=== PATIENT | female | born 1995 | race Caucasian/White ===

== ENCOUNTER 2018-03-11 18:20 | Emergency (ER) | payer BC ==
[~2018-03-11] VITALS: Ht 160 cm; Wt 54.0 kg
[~2018-03-11 18:20] MED LIST: PANT-47 PO; PREN1COM10 PO; SUCR1ORA2 PO
[2018-03-11 18:33] VITALS: BP 135/81
== END 2018-03-11 19:33 | disposition home or self-care (01) ==
LOC: ER 18:21
DX: S90.02XA Contusion of left ankle, initial encounter (principal); Z88.2 Allergy status to sulfonamides; W18.30XA Fall on same level, unspecified, initial encounter; Y93.89 Activity, other specified; Y92.89 Other specified places as the place of occurrence of the external cause; Y99.8 Other external cause status
CPT/HCPCS: 29515; 73610; 99284

== ENCOUNTER 2019-02-06 11:14 | Emergency (ER) | payer BC, MEDICAID ==
[~2019-02-06] VITALS: Ht 160 cm; Wt 58.0 kg
[2019-02-06 11:18] VITALS: BP 154/95
== END 2019-02-06 12:08 | disposition home or self-care (01) ==
LOC: ER 11:15
DX: J06.9 Acute upper respiratory infection, unspecified (principal); Z88.2 Allergy status to sulfonamides; Z79.899 Other long term (current) drug therapy
CPT/HCPCS: 99281

== ENCOUNTER 2019-02-09 23:52 | Emergency (ER) | payer MEDICAID, OTHER ==
[~2019-02-09] VITALS: Ht 160 cm; Wt 68.2 kg
[2019-02-09 23:59] VITALS: BP 138/79
== END 2019-02-10 00:28 | disposition home or self-care (01) ==
LOC: ER 23:53
DX: S51.851A Open bite of right forearm, initial encounter (principal); S50.11XA Contusion of right forearm, initial encounter; Z88.2 Allergy status to sulfonamides; Z79.899 Other long term (current) drug therapy; Y04.1XXA Assault by human bite, initial encounter; Y93.89 Activity, other specified; Y92.89 Other specified places as the place of occurrence of the external cause; Y99.8 Other external cause status
CPT/HCPCS: 99281

== ENCOUNTER 2021-05-16 23:25 | Emergency (ER) | payer MEDICAID, OTHER ==
[~2021-05-16] VITALS: Ht 165.1 cm; Wt 63.6 kg
[2021-05-16] MEDS ORDERED: normal saline 1000ml 1,000 ML IV ONE (23:55)
[2021-05-16] MEDS ORDERED: ondansetron/PF 4mg/2ml inj IV ONE (23:55)
[2021-05-16] MEDS ORDERED: loperamide 2mg capsule PO ONE (23:55)
--- NOTE | 2021-05-17 00:10 | NUR ---
pt roomed. assumed care of pt
[2021-05-17] MEDS ORDERED: ketorolac trometh. 30mg/ml inj. IV ONE (00:15)
[2021-05-17] MEDS ORDERED: acetaminophen 325mg tablet PO ONE (00:15)
[2021-05-17 00:49] VITALS: BP 120/80
== END 2021-05-17 00:53 | disposition home or self-care (01) ==
LOC: ER 23:26
DX: J06.9 Acute upper respiratory infection, unspecified (principal); Z20.822 Contact with and (suspected) exposure to COVID-19; R11.0 Nausea; B34.9 Viral infection, unspecified; R05.9 Cough, unspecified; R06.02 Shortness of breath; Z88.2 Allergy status to sulfonamides; Z79.899 Other long term (current) drug therapy
CPT/HCPCS: 71045; 87635; 96374; 96375; 99284; C9803; J1885; J2405; J7030

== ENCOUNTER 2023-10-23 17:46 | Emergency (ER) | payer MEDICAID ==
[~2023-10-23] VITALS: Ht 160 cm; Wt 65.1 kg
[2023-10-23 18:05] VITALS: BP 118/83; PULSE 102; RESP 16; TEMP 98.7; O2SAT 95
[2023-10-23] MEDS ORDERED: AZIT250T83 PO (18:40)
[2023-10-23] MEDS ORDERED: ALBU8HFA INH (18:40)
[2023-10-23] MEDS ORDERED: BENZ-38 PO (18:40)
== END 2023-10-23 18:55 | disposition home or self-care (01) ==
LOC: ER 17:46
DX: R05.9 Cough, unspecified (principal); U09.9 Post COVID-19 condition, unspecified; Z79.899 Other long term (current) drug therapy; Z72.89 Other problems related to lifestyle
CPT/HCPCS: 71045; 99283

== ENCOUNTER 2024-07-16 18:18 | Emergency (ER) | payer MEDICAID ==
[~2024-07-16] VITALS: Ht 165.1 cm; Wt 58.7 kg
[2024-07-16 18:33] VITALS: BP 139/90; PULSE 94; O2SAT 98
[2024-07-16] MEDS ORDERED: ONDA-245 PO (19:07)
[2024-07-16] MEDS ORDERED: HYDR-3965 PO (19:07)
[2024-07-16 19:13] VITALS: RESP 16
[2024-07-16] MEDS: HYDROcodone/acetaminophen 5mg/325mg tablet PO ONE (19:13)
[2024-07-16] MEDS: ondansetron 4mg rapidly disintigrating tab PO ONE (19:14)
[2024-07-16 19:16] VITALS: TEMP 96.8
== END 2024-07-16 19:19 | disposition home or self-care (01) ==
LOC: ER 18:18
DX: S16.1XXA Strain of muscle, fascia and tendon at neck level, initial encounter (principal); Z79.899 Other long term (current) drug therapy; V89.2XXA Person injured in unspecified motor-vehicle accident, traffic, initial encounter; Y93.89 Activity, other specified; Y92.410 Unspecified street and highway as the place of occurrence of the external cause; Y99.8 Other external cause status
CPT/HCPCS: 99283

== ENCOUNTER 2024-07-24 21:00 | Emergency (ER) | payer MEDICAID ==
[~2024-07-24] VITALS: Ht 160 cm; Wt 65.9 kg
[~2024-07-24 21:00] MED LIST changes: +HYDR-3965 PO; +ONDA-245 PO
[2024-07-24 21:29] VITALS: BP 136/89; PULSE 80; O2SAT 99
[2024-07-24 22:30] VITALS: RESP 16
[2024-07-24] MEDS: HYDROcodone/acetaminophen 10/325mg tab PO STA (22:30)
[2024-07-24] MEDS ORDERED: HYDR-3973 PO (22:56)
[2024-07-24 23:11] VITALS: TEMP 97.2
== END 2024-07-24 23:14 | disposition home or self-care (01) ==
LOC: ER 21:00
DX: M54.2 Cervicalgia (principal); Z88.8 Allergy status to other drugs, medicaments and biological substances; Z79.899 Other long term (current) drug therapy; V98.8XXA Other specified transport accidents, initial encounter; Y93.89 Activity, other specified; Y92.89 Other specified places as the place of occurrence of the external cause; Y99.8 Other external cause status
CPT/HCPCS: 72050; 99283

== ENCOUNTER 2024-07-28 19:39 | Emergency (ER) | payer MEDICAID ==
[~2024-07-28 19:39] MED LIST changes: +HYDR-3973 PO
== END 2024-07-28 20:40 | disposition left against medical advice (07) ==
LOC: ER 19:40
DX: Z00.8 Encounter for other general examination (principal); Z53.21 Procedure and treatment not carried out due to patient leaving prior to being seen by health care provider; V89.2XXA Person injured in unspecified motor-vehicle accident, traffic, initial encounter; Y93.89 Activity, other specified; Y92.89 Other specified places as the place of occurrence of the external cause; Y99.8 Other external cause status